=== PATIENT | female | born 1960 | race Caucasian/White ===

== ENCOUNTER 2020-04-11 22:03 | Inpatient (IN) | payer BC, OTHER ==
[~2020-04-11] VITALS: Ht 152.4 cm; Wt 49.5 kg
[2020-04-11] MEDS ORDERED: normal saline 1000ML IV soln IVB ONE (22:40)
[2020-04-11] MEDS ORDERED: ondansetron/PF 4mg/2ml inj IV ONE (22:40)
[2020-04-11 23:15] LABS: BASOPHILS % (AUTO) 0.3 % (0-1); EOSINOPHILS % (AUTO) 0.4 % (0-6); HEMATOCRIT 40.3 % (35.0-45.0); HEMOGLOBIN 13.3 g/dl (12.0-16.0); LYMPHOCYTES # (AUTO) 1.4 X10'3 (1.1-4.8); LYMPHOCYTES % (AUTO) 11.3 % (21-51); MEAN CORPUSCULAR HEMOGLOBIN 31.6 PG (27.0-31.0); MEAN CORPUSCULAR VOLUME 95.8 FL (78-98); MONOCYTES # (AUTO) 0.8 X10'3 (0-0.9); MONOCYTES % (AUTO) 6.6 % (2-12); NEUTROPHILS # (AUTO) 9.7 X10'3 (1.8-7.7); NEUTROPHILS % (AUTO) 81.4 % (42-75); PLATELET COUNT 236 X10'3 (140-440); RED BLOOD COUNT 4.21 X10'6 (4.20-5.60); RED CELL DISTRIBUTION WIDTH 13.7 % (11.5-14.5)
[2020-04-11 23:21] LABS: CLARITY,URINE CLEAR (Clear); COLOR,URINE YELLOW (Yellow); GLUCOSE, URINE NEGATIVE (Neg); KETONES,URINE 15 mg/dl (Neg); LEUKOCYTE ESTERASE ,URINE NEGATIVE (Neg); NITRITES, URINE NEGATIVE (Neg); OCCULT BLOOD,URINE NEGATIVE (Neg); PROTEIN,URINE NEGATIVE (Neg); UROBILINOGEN,URINE 0.2 E.U/dL (0.2-1.0)
[2020-04-11 23:25] LABS: UA COLLECTION TYPE CLN CATCH MIDSTREAM
[2020-04-11 23:32] LABS: ALANINE AMINOTRANSFERASE 20 U/L (12-78); ALBUMIN 3.8 G/DL (3.4-5.0); ALBUMIN/GLOBULIN RATIO 1.1 (1.1-1.5); ALKALINE PHOSPHATASE 72 IU/L (46-116); ANION GAP 10 (8-16); ASPARTATE AMINO TRANSFERASE 15 U/L (10-37); BILIRUBIN,TOTAL 0.4 MG/DL (0.1-1.0); BLOOD UREA NITROGEN 7 MG/DL (7-18); BUN/CREATININE RATIO 10.3 (6.6-38.0); CALCIUM 8.5 MG/DL (8.5-10.1); CHLORIDE 104 MMOL/L (99-107); CREATININE 0.68 MG/DL (0.40-0.90); GLUCOSE 118 MG/DL (70-104); LIPASE 113 U/L (73-393); POTASSIUM 3.7 MMOL/L (3.5-5.1); SODIUM 139 MMOL/L (135-145); TOTAL CARBON DIOXIDE 24.6 MMOL/L (24-32); TOTAL PROTEIN 7.3 G/DL (6.4-8.2); eGFR 89 ML/MIN
[2020-04-11] MEDS ORDERED: iohexol 300mg/ml 100ml inj. ONE (23:57)
[2020-04-12] VITALS (18 sets, daily range): BP systolic 95–139; BP diastolic 41–99
[2020-04-12] MEDS ORDERED: piperacillin/tazo 3.375gm/50ml 50 ML IV ONE (00:15)
--- NOTE | 2020-04-12 00:35 | NUR ---
RAJENDRA PFEIFFER TALKING W PATIENT, STATES SHE HAS ACUTE APPENDICITIS AND WILL NEED ADMISSION. NPO NOW. PTS MED REC COMPLETED. PT AWAITING HOSPITALIST. PT IS AGREEABLE TO ADMISSION.
[2020-04-12] MEDS ORDERED: nicotine 14mg patch - 24hr TD ONE (00:40)
[2020-04-12] MEDS ORDERED: GUSE100A SQ (00:43)
[2020-04-12] MEDS ORDERED: OMEP-50 PO (00:43)
[2020-04-12] MEDS ORDERED: ESZO1TAB13 PO (00:43)
[2020-04-12] MEDS ORDERED: ESTR1PAT93 TD (00:43)
[2020-04-12] MEDS ORDERED: CITA20TA16 PO (00:43)
[2020-04-12] MEDS ORDERED: MULT-1085 PO (00:44)
[2020-04-12] MEDS ORDERED: ASPI81TA52 PO (00:44)
[2020-04-12] MEDS ORDERED: ondansetron/PF 4mg/2ml inj IV PRN ×2 (00:50→16:15)
[2020-04-12] MEDS ORDERED: potassium Cl 40MEQ/1/2NS 520ml 520 ML IV PRN ×2 (00:50)
[2020-04-12] MEDS ORDERED: magnesium hydroxide 30ml (MOM) UD suspension PO PRN (00:50)
[2020-04-12] MEDS ORDERED: acetaminophen 325mg tablet PO PRN (00:50)
[2020-04-12] MEDS ORDERED: magnesium 4gm in 100ml NS 100 ML IV PRN (00:50)
[2020-04-12] MEDS ORDERED: potassium Cl 20 mEq SR tablet PO PRN ×2 (00:50)
[2020-04-12] MEDS ORDERED: mag hydrox/Alum hydrox/simeth 30ml oral suspension PO PRN (00:50)
[2020-04-12] MEDS ORDERED: magnesium Cl slow-release 64mg tablet PO PRN (00:50)
[2020-04-12] MEDS ORDERED: magnesium 2GM in 50ml NS 50 ML IV PRN (00:50)
[2020-04-12] MEDS: normal saline 1000ml 1,000 ML IV SCH ×3 (01:02→19:53)
--- NOTE | 2020-04-12 01:18 | NUR ---
Received report from RUBENS Enriquez. Awaiting patient arrival to the unit.
--- NOTE | 2020-04-12 01:20 | NUR ---
Patient arrived to the floor via wheelchair, accompanied by ED RN. Patient alert and oriented x4 on room air, in no apparent distress. Call light and items of frequent use within reach. Will continue to monitor.
[2020-04-12] MEDS: morphine 2 MG/ML inj. syringe IV PRN ×2 (01:45→19:50)
--- NOTE | 2020-04-12 06:10 | NUR ---
Problems reprioritized. Patient report given, questions answered & plan of care reviewed with RUBENS Cuadra.
--- NOTE | 2020-04-12 06:38 | NUR ---
Patient in room [facility]. I have received report from RUBENS Mack and had the opportunity to ask questions and assume patient care.
[2020-04-12] MEDS: citalopram 20mg tablet PO SCH (08:00)
[2020-04-12] MEDS: K and/or MAG REPLACEMENT MC SCH ×2 (08:00→20:00)
[2020-04-12] MEDS: piperacillin/tazo 4.5gm/100ml 100 ML IV SCH ×2 (08:07→16:33)
--- NOTE | 2020-04-12 12:01 | NUR ---
Spoke to Dr Webb in regard of pt's possible surgery status. Dr Webb requested to call his office and give patient's information to have patient put on his list for surgery today.
[2020-04-12] MEDS ORDERED: ringers solution, lacted 1,000 ML IV SCH (16:15)
[2020-04-12] MEDS ORDERED: ringers solution, lacted 1,000 ML IV ONE (16:15)
[2020-04-12] MEDS ORDERED: morphine 2 MG/ML inj. syringe IV PRN (16:15)
[2020-04-12] MEDS ORDERED: labetalol 20mg/4ml (5mg/ml) syringe IV PRN (16:15)
[2020-04-12] MEDS ORDERED: morphine 4 MG/ML inj SYRINge IV PRN (16:15)
[2020-04-12] MEDS ORDERED: fentaNYL/PF 50MCG/1 ML 2ML syringe IV PRN ×2 (16:15)
[2020-04-12] MEDS ORDERED: hydrALAZINE 20mg/ml inj. IV PRN (16:15)
--- NOTE | 2020-04-12 17:03 | NUR ---
Patient taken for surgery. Report given to recovery nurse Joyce.
[2020-04-12] MEDS ORDERED: BUPIVAcaine/PF 2.5 mg/ml (0.25%) 30ml vial ONE (17:40)
[2020-04-12] MEDS ORDERED: fentaNYL/PF 50MCG/1 ML 2ML syringe ONE (17:42)
[2020-04-12] MEDS ORDERED: LIDOcaine 2% (20mg/ml) 5ml vial ONE (17:47)
[2020-04-12] MEDS ORDERED: rocuronium 10mg/ml inj IV ONE (17:47)
[2020-04-12] MEDS ORDERED: propofol inj 20 ML IV ONE (17:47)
[2020-04-12] MEDS ORDERED: neostigmine methylsulfate 1 MG/ML 10ml vial ONE (17:57)
[2020-04-12] MEDS ORDERED: glycopyrrolate 0.2mg/ml inj ONE (17:57)
[2020-04-12] MEDS ORDERED: sugammadex 200mg/2ml injection IV ONE (18:25)
--- NOTE | 2020-04-12 18:30 | NUR ---
Patient in room [facility]. I have received report from Venecia ART and had the opportunity to ask questions. pt in OR, awaiting pt arrival
[2020-04-12] MEDS ORDERED: non-formulary drug (Eszopiclone 1 TAB) PO PRN (18:45)
--- NOTE | 2020-04-12 18:51 | NUR ---
Received from OR via [facility], accompanied by Anesthesiologist and report given by Anesthesiologist. PATIENT IS LAYING ON BED, DENIES PAIN AT THIS TIME, COMPLAINS OF BEING COLD, TEMPERATUR IS 36.1C, BEARHUGGER APPLIED TO PATIENT, RIGHT WIRIST 20G LR RUNNING AT 100ML/HR, 4 RAILS UP, PATIENT IS COMFORTABLE AT THIS TIME. WILL ASSESS AND MONITOR. Addendum: 04/12/20 at 1907 by Roberto Carlos Parra RN, RN Amended: Links added.
--- NOTE | 2020-04-12 19:09 | NUR ---
Problems reprioritized. Patient report given, questions answered & plan of care reviewed with RUBENS Peña .
--- NOTE | 2020-04-12 19:21 | NUR ---
ALL CRITERIA FOR TRANSFER TO THE FLOOR HAS BEEN ACHIEVED. REPORT GIVEN TO ROSENDO ART AND ALL QUESTIONS ANSWERED, VSS. BED LOW 2 RAILS UP, CALL LIGHT PRESENT AND PATIENT HOOKED UP TO ALL LINES AND VSS. PATIENTS RN PRESENT TO ACCEPT CARE. PATIENT DENIES PAIN AT THIS TIME, PIV ON RIGHT WRIST, LR RUNNING AT 100ML/HR. CHARGE NRUSE IS IN THE ROOM TO RECEIVE THE PATIENT. Addendum: 04/12/20 at 2019 by Roberto Carlos Kaur - RUBENS RN Amended: Links added.
--- NOTE | 2020-04-12 19:40 | NUR ---
Received report from OR nurse. all questions answered. pt arrived to floor. will continue to monitor.
--- NOTE | 2020-04-12 20:28 | NUR ---
paged Dr. Le "340B 04/11 abd pain 04/12 lap appy. pt requesting nicotine patch and an increase in pain medications. current morphine isn't cutting it and wanted to know if we can add Constable" awaiting response
[2020-04-12] MEDS: nicotine 21mg patch - 24 hr TD SCH (20:30)
[2020-04-12] MEDS: HYDROcodone/acetaminophen 10/325mg tab PO PRN (21:06)
[2020-04-13] VITALS: BP 101/52
[2020-04-13] MEDS: piperacillin/tazo 4.5gm/100ml 100 ML IV SCH ×2 (00:04→08:04)
[2020-04-13] MEDS: morphine 2 MG/ML inj. syringe IV PRN (00:14)
[2020-04-13 04:03] VITALS: BP 131/76
[2020-04-13] MEDS: normal saline 1000ml 1,000 ML IV SCH (04:52)
[2020-04-13] MEDS: HYDROcodone/acetaminophen 10/325mg tab PO PRN ×3 (04:53→15:44)
[2020-04-13] MEDS: nicotine 21mg patch - 24 hr TD SCH (04:53)
[2020-04-13] MEDS ORDERED: famotidine/PF 10 mg/ml inj IV ONE (06:00)
--- NOTE | 2020-04-13 06:25 | NUR ---
Problems reprioritized. Patient report given, questions answered & plan of care reviewed with Venecia ART.
--- NOTE | 2020-04-13 06:28 | NUR ---
Patient in room [facility]. I have received report from RUBENS Peña and had the opportunity to ask questions and assume patient care.
[2020-04-13 06:43] LABS: BASOPHILS % (AUTO) 0.2 % (0-1); EOSINOPHILS % (AUTO) 0 % (0-6); HEMATOCRIT 35.2 % (35.0-45.0); LYMPHOCYTES % (AUTO) 11.4 % (21-51); MEAN CORPUSCULAR HEMOGLOBIN 32.7 PG (27.0-31.0); MEAN CORPUSCULAR VOLUME 96.2 FL (78-98); MEAN PLATELET VOLUME 8.5 FL (7.4-10.4); MONOCYTES # (AUTO) 0.2 X10'3 (0-0.9); MONOCYTES % (AUTO) 2.5 % (2-12); NEUTROPHILS # (AUTO) 7.2 X10'3 (1.8-7.7); NEUTROPHILS % (AUTO) 85.9 % (42-75); PLATELET COUNT 215 X10'3 (140-440); RED BLOOD COUNT 3.66 X10'6 (4.20-5.60); RED CELL DISTRIBUTION WIDTH 13.7 % (11.5-14.5); WHITE BLOOD COUNT 8.4 X10'3 (4.5-11.0)
[2020-04-13 06:53] LABS: ANION GAP 14 (8-16); BLOOD UREA NITROGEN 9 MG/DL (7-18); BUN/CREATININE RATIO 13.6 (6.6-38.0); CHLORIDE 105 MMOL/L (99-107); CREATININE 0.66 MG/DL (0.40-0.90); GLUCOSE 109 MG/DL (70-104); POTASSIUM 4.2 MMOL/L (3.5-5.1); SODIUM 140 MMOL/L (135-145); TOTAL CARBON DIOXIDE 20.8 MMOL/L (24-32)
[2020-04-13 06:54] LABS: ALANINE AMINOTRANSFERASE 6 U/L (12-78); ALBUMIN 3.1 G/DL (3.4-5.0); ALBUMIN/GLOBULIN RATIO 0.9 (1.1-1.5); ALKALINE PHOSPHATASE 59 IU/L (46-116); ASPARTATE AMINO TRANSFERASE 21 U/L (10-37); BILIRUBIN,TOTAL 0.5 MG/DL (0.1-1.0); CALCIUM 7.8 MG/DL (8.5-10.1); MAGNESIUM 2.1 MG/DL (1.5-2.4); TOTAL PROTEIN 6.4 G/DL (6.4-8.2); eGFR > 90 ML/MIN
[2020-04-13 08:00] VITALS: BP 106/52
[2020-04-13] MEDS: citalopram 20mg tablet PO SCH (08:00)
[2020-04-13] MEDS: K and/or MAG REPLACEMENT MC SCH (08:00)
[2020-04-13] MEDS ORDERED: estradiol 0.1mg patch.TDWK TD SCH (08:10)
[2020-04-13 12:00] VITALS: BP 125/56
[2020-04-13] MEDS ORDERED: AMOX-419 PO (15:47)
[2020-04-13] MEDS ORDERED: HYDR-3965 PO (15:50)
--- NOTE | 2020-04-13 16:58 | NUR ---
Pt discharge home in stable condition. discharge and medication instructions given to pt. Pt tolerating diet well. IV removed. Pt was escorted on w/c to main lobby. Left the hospital accompanied by family member.
[2020-04-13] MEDS ORDERED: lactobacillus rhamnosus 10,000 MMU CELLS/CAPSULE PO SCH (20:00)
[2020-04-16] MEDS ORDERED: estradiol 0.1mg patch.TDWK TD SCH (08:00)
== END 2020-04-13 16:42 | disposition home or self-care (01) | DRG 343 ==
LOC: ER 22:04 → ED HOLD 04-12 00:47 → SUR 3N 04-12 01:17 → PACU 04-12 19:09 → SUR 3N 04-12 19:42
PROVIDERS: ADMIT Family Medicine; ATTEND Family Medicine
PROC: BW211ZZ Computerized Tomography (CT Scan) of Abdomen and Pelvis using Low Osmolar Contrast (ICD-10-PCS; 2020-04-12)
PROC: 0DTJ4ZZ Resection of Appendix, Percutaneous Endoscopic Approach (ICD-10-PCS; principal; 2020-04-12 17:43)
DX: K35.80 Unspecified acute appendicitis (principal); F17.200 Nicotine dependence, unspecified, uncomplicated; F41.8 Other specified anxiety disorders; Z20.822 Contact with and (suspected) exposure to COVID-19; K21.9 Gastro-esophageal reflux disease without esophagitis; Z90.710 Acquired absence of both cervix and uterus; Z88.5 Allergy status to narcotic agent; Z79.899 Other long term (current) drug therapy; Z79.82 Long term (current) use of aspirin
CPT/HCPCS: 36415; 74177; 76705; 80053; 81003; 82948; 83690; 83735; 85025; 86885; 86900; 86901; 87081; 87426; 93005; 96365; 99285; A4215; A4618; A7000; C9399; G0378; J2001; J2270; J2405; J2543; J2704; J2710; J3010; J3490; J7030; J7120; Q9967